=== PATIENT | male | born 1970 | race Caucasian/White ===

== ENCOUNTER 2021-11-23 14:02 | Emergency (ER) | payer OTHER ==
[~2021-11-23] VITALS: Ht 182.9 cm; Wt 59.0 kg
[2021-11-23] MEDS ORDERED: cefTRIAXone SOD 1,000 MG VL IM ONE (16:45)
[2021-11-23] MEDS ORDERED: KETOROLAC TROMETH 60MG/2ML VIAL IM ONE (16:45)
[2021-11-23 16:46] VITALS: BP 122/85
[2021-11-23] MEDS ORDERED: BACDST PO (17:22)
[2021-11-23] MEDS ORDERED: IBUP800T27 PO (17:22)
== END 2021-11-23 17:33 | disposition home or self-care (01) ==
LOC: ER 14:02
DX: S60.463A Insect bite (nonvenomous) of left middle finger, initial encounter (principal); L08.9 Local infection of the skin and subcutaneous tissue, unspecified; Z79.1 Long term (current) use of non-steroidal anti-inflammatories (NSAID); Z79.899 Other long term (current) drug therapy; W57.XXXA Bitten or stung by nonvenomous insect and other nonvenomous arthropods, initial encounter; Y93.89 Activity, other specified; Y92.89 Other specified places as the place of occurrence of the external cause; Y99.8 Other external cause status
CPT/HCPCS: 96372; 99284; J0696; J1885